=== PATIENT | female | born 2000 | race Caucasian/White ===

== ENCOUNTER 2022-11-26 07:43 | Inpatient (IN) ==
[2022-11-26] MEDS ORDERED: miSOPROStoL 200 MCG TABLET RECTAL PRN (07:53)
[2022-11-26] MEDS ORDERED: CITRIC ACID/SODIUM CITRATE 30 ML UDCUP PO ONE (07:53)
[2022-11-26] MEDS ORDERED: ceFAZolin 2,000 MG/50 ML DUPLEX IV ONE (07:53)
[2022-11-26] MEDS ORDERED: CARBOPROST TROMETHAMINE 250 MCG/ML AMP IM PRN (07:53)
[2022-11-26] MEDS ORDERED: OXYTOCIN/LR 20 UNIT/1,000 ML BAG IV ONE ×2 (07:53→11:04)
[2022-11-26] MEDS ORDERED: FAMOTIDINE 20 MG/2 ML VIAL IV ONE (07:53)
[2022-11-26] MEDS ORDERED: ONDANSETRON 4 MG/2 ML VIAL IV PRN ×2 (07:53→11:04)
[2022-11-26] MEDS ORDERED: TRANEXAMIC ACID 1,000 MG in SODIUM CHLORIDE 0.9% 100 ML IV PRN (07:53)
[2022-11-26] MEDS ORDERED: METHYLERGONOVINE 0.2 MG/1 ML AMP IM PRN (07:53)
[2022-11-26] MEDS ORDERED: LACTATED RINGERS 1,000 ML IV SCH ×2 (08:00→11:30)
[2022-11-26 08:29] LABS: Basophils % 0.3 % (0.0-0.8); Eosinophils # 0.2 10*3/uL (0.0-0.87); Eosinophils % 1.5 % (0.00-10.9); Hematocrit 32.7 VOL% (35.7-47.0); Hemoglobin 10.5 GM/DL (12.0-16.0); Immature Granulocytes % 0.7 %; Immature Granulocytes Absolute 0.07 #; Lymphocytes # 2.1 10*3/uL (1.4-4.0); Lymphocytes % 21.1 % (21.3-54.2); Mean Corpuscular HGB Conc 32.1 GM/DL (32-36); Mean Corpuscular Volume 83.4 FL (87-102); Mean Platelet Volume 11.2 FL (9.6-12.0); Monocytes # 0.7 10*3/uL (0.11-0.8); Neutrophils % 69.4 % (38.7-73.9); Platelet Count 273 T/CUMM (130-400); Red Blood Count 3.92 MC/CUMM (3.8-5.5)
[2022-11-26 08:41] LABS: Alanine Aminotransferase 13 U/L (13-56); Albumin 3.1 G/DL (3.4-5.0); Alkaline Phosphatase 180 U/L (45-117); Aspartate Amino Transferase 13 U/L (0-37); Bilirubin,Total < 0.39 MG/DL (0.20-1.00); Blood Urea Nitrogen 10 MG/DL (7-18); Calcium 9.1 MG/DL (8.5-10.1); Carbon Dioxide 19 MMOL/L (21-32); Chloride 108 MMOL/L (98-107); Glucose 89 MG/DL (74-106); Osmolality,Calculated 270.8 MOS/KG (273-304); Potassium 3.6 MMOL/L (3.5-5.1); Sodium 137 MMOL/L (136-145); Total Protein 7.4 G/DL (6.4-8.2)
[2022-11-26] MEDS ORDERED: OXYTOCIN 10 UNIT/ML VIAL ONE (09:06)
[2022-11-26] MEDS ORDERED: buprenorphine HCL 0.3 MG/ML VIAL ONE (09:09)
[2022-11-26] MEDS ORDERED: ONDANSETRON 4 MG/2 ML VIAL ONE (09:12)
[2022-11-26] MEDS ORDERED: BUPIVACAINE SPINAL 0.75% 2 ML AMP SPINAL ONE (09:12)
[2022-11-26] MEDS ORDERED: PHENYLEPHRINE 1 MG/10 ML SYRINGE IV ONE (09:12)
[2022-11-26] MEDS ORDERED: ACETAMINOPHEN INJ 1,000 MG/100 ML VIAL IV ONE (09:13)
[2022-11-26] MEDS ORDERED: OXYTOCIN/LR 30 UNIT/1,000 ML BAG IV ONE (10:00)
[2022-11-26] MEDS ORDERED: OXYTOCIN 10 UNIT/ML VIAL IM ONE (10:00)
[2022-11-26 10:27] LABS: Cord Venous Blood HCO3 21.4 MMOL/L; Cord Venous Blood PCO2 39.6 MMHG; Cord Venous Blood PO2 29.2
[2022-11-26] MEDS ORDERED: KETOROLAC 30 MG/1 ML VIAL ONE (10:29)
[2022-11-26 10:41] LABS: Bacteria,Urine Occasional /HPF (Few); Mucus,Urine Few /LPF (Occasional); Squamous Epithelial Cell,Urine Occasional /HPF (0-10)
[2022-11-26 10:42] LABS: Urine Appearance CL (Clear); Urine Color Yellow (Yellow)
[2022-11-26 10:43] LABS: Bilirubin,Urine Negative (Negative); Blood, Urine Negative (Negative); Glucose,Urine (UA) Negative (Negative); Ketones,Urine Negative (Negative); Nitrite,Urine Negative (Negative); Protein,Urine Negative (Negative); Urine Specific Gravity 1.025 (1.001-1.035); Urine Urobilinogen 0.2 eU/dL (<2.0)
[2022-11-26] MEDS ORDERED: RHO(D) IMMUNE GLOBULIN 300 MCG SYRINGE IM ONE (11:04)
[2022-11-26] MEDS ORDERED: MAGNESIUM HYDROXIDE SUSP 30 ML UDCUP PO PRN (11:04)
[2022-11-26] MEDS ORDERED: ACETAMINOPHEN 325 MG TABLET PO PRN (11:04)
[2022-11-26] MEDS ORDERED: SIMETHICONE CHEW 80 MG TABLET PO PRN (11:04)
[2022-11-26] MEDS ORDERED: ACETAMINOPHEN 500 MG TABLET PO SCH (18:00)
[2022-11-26] MEDS: DOCUSATE SODIUM 100 MG CAPSULE PO SCH (20:43)
[2022-11-27] MEDS: IBUPROFEN 800 MG TABLET PO PRN ×2 (02:33→16:56)
[2022-11-27 06:07] LABS: Basophils % 0.2 % (0.0-0.8); Eosinophils # 0.2 10*3/uL (0.0-0.87); Eosinophils % 2.2 % (0.00-10.9); Hematocrit 26.3 VOL% (35.7-47.0); Immature Granulocytes % 0.9 %; Immature Granulocytes Absolute 0.09 #; Lymphocytes % 20.1 % (21.3-54.2); Mean Corpuscular HGB Conc 30.8 GM/DL (32-36); Mean Corpuscular Volume 85.9 FL (87-102); Mean Platelet Volume 11.5 FL (9.6-12.0); Monocytes # 0.6 10*3/uL (0.11-0.8); Neutrophils % 70.6 % (38.7-73.9)
[2022-11-27 06:12] LABS: Red Blood Count 3.06 MC/CUMM (3.8-5.5)
[2022-11-27 06:13] LABS: Hemoglobin 8.1 GM/DL (12.0-16.0); Platelet Count 202 T/CUMM (130-400)
[2022-11-27] MEDS: DOCUSATE SODIUM 100 MG CAPSULE PO SCH ×2 (09:16→21:05)
[2022-11-27] MEDS: MULTIVITAMIN (PRENATAL) TABLET PO SCH (09:16)
[2022-11-28] MEDS: DOCUSATE SODIUM 100 MG CAPSULE PO SCH (09:20)
[2022-11-28] MEDS: MULTIVITAMIN (PRENATAL) TABLET PO SCH (09:20)
[2022-11-28 16:15] VITALS: BP 101/68
== END 2022-11-28 22:45 | disposition home or self-care (01) | DRG 540 ==
LOC: N.LD 07:43 → N.OB 13:42
PROVIDERS: ADMIT Obstetrics & Gynecology; ATTEND Obstetrics & Gynecology
PROC: LDCSECT (ICD-10-PCS; 2022-11-26 10:00)